=== PATIENT | male | born 1975 | race Caucasian/White ===

== ENCOUNTER → 2021-04-02 | Outpatient (CLI) | payer BC, OTHER | LOC: HEART 5 10:14 | DX: E78.2 Mixed hyperlipidemia (principal) | CPT/HCPCS: 94010; 94729 ==

== ENCOUNTER → 2021-04-09 | Outpatient (CLI) | payer BC, OTHER | LOC: KOH-I 08:00 | DX: J84.112 Idiopathic pulmonary fibrosis (principal); R91.8 Other nonspecific abnormal finding of lung field; R59.0 Localized enlarged lymph nodes | CPT/HCPCS: 71250 ==

== ENCOUNTER → 2021-05-08 | Outpatient (CLI) | payer BC, OTHER | LOC: LAB 13:01 | DX: J84.9 Interstitial pulmonary disease, unspecified (principal) | CPT/HCPCS: 36415; 86331; 86602; 86609; 86671 ==

== ENCOUNTER → 2021-06-30 | Outpatient (CLI) | payer BC, OTHER | LOC: KOH-I 13:00 | DX: J84.9 Interstitial pulmonary disease, unspecified (principal); R59.9 Enlarged lymph nodes, unspecified | CPT/HCPCS: 71250 ==

== ENCOUNTER → 2021-10-24 | Outpatient (CLI) | payer BC, OTHER | LOC: EXRD 11:05 | DX: J84.112 Idiopathic pulmonary fibrosis (principal); R91.8 Other nonspecific abnormal finding of lung field | CPT/HCPCS: 71046 ==

== ENCOUNTER → 2022-02-11 | Outpatient (CLI) | payer BC, OTHER | LOC: KOH-I 02-10 13:00 | DX: J84.9 Interstitial pulmonary disease, unspecified (principal); R91.8 Other nonspecific abnormal finding of lung field | CPT/HCPCS: 71250 ==

== ENCOUNTER → 2022-02-23 | Outpatient (CLI) | payer BC, OTHER | LOC: HEART 5 11:06 | DX: J84.9 Interstitial pulmonary disease, unspecified (principal) | CPT/HCPCS: 94060; 94729 ==